=== PATIENT | female | born 1980 | race Hispanic/Latino ===

== ENCOUNTER 2024-10-05 07:58 | Emergency (ER) | payer BC ==
[~2024-10-05] VITALS: Ht 162.6 cm; Wt 76.7 kg
[2024-10-05 08:23] VITALS: TEMP 98.5
[2024-10-05] MEDS: TRAMADOL HCL 50 MG TAB PO ONE (09:42)
[2024-10-05] MEDS ORDERED: PREDNISONE20 MG PO (09:59)
[2024-10-05] MEDS ORDERED: CYCLOBENZAPRINE5 MG PO (09:59)
[2024-10-05 10:07] VITALS: PULSE 63; RESP 16; O2SAT 96
== END 2024-10-05 10:14 | disposition home or self-care (01) ==
LOC: FSED 08:21
DX: R20.2 Paresthesia of skin (principal); R07.89 Other chest pain; M50.30 Other cervical disc degeneration, unspecified cervical region; M79.18 Myalgia, other site; E78.5 Hyperlipidemia, unspecified
CPT/HCPCS: 71046; 72125; 80053; 81003; 82553; 84484; 85025; 93005; 99284